=== PATIENT | male | born 1955 | race African-American/Black ===

== ENCOUNTER 2019-08-11 03:48 | Emergency (ER) | payer MEDICAID ==
[~2019-08-11] VITALS: Ht 185.4 cm; Wt 95.0 kg
[2019-08-11 07:31] VITALS: BP 132/70
== END 2019-08-11 08:38 | disposition home or self-care (01) ==
LOC: ER 03:48
DX: M25.461 Effusion, right knee (principal); M17.11 Unilateral primary osteoarthritis, right knee
CPT/HCPCS: 73562; 99283